=== PATIENT | male | born 1970 | race African-American/Black ===

== ENCOUNTER 2018-03-19 14:30 | Emergency (ER) | payer SELFPAY ==
--- NOTE | 2018-03-19 14:42 | PDOC ---
History of Present Illness - General Chief Complaint: Pain, Acute Stated Complaint: BODY CRAMPS AFTER WORKING OUT Time Seen by Provider: 03/19/18 14:34 - History of Present Illness Initial Comments: 03/19/18 15:17 The patient is a 47 year old male with no significant PMH who presents for evaluation of whole body muscle cramps. The patient reports that after working out today, he has been experiencing whole body muscle cramps prompting his presentation to the ED for further evaluation. He notes that he has had similar symptoms in the past after working out and notes that he had not made a change in his work out routine recently. He otherwise denies fevers, chills, SOB, chest pain, nausea, vomiting, abdominal pain, or changes with urination or bowel movements. Past History - Past Medical History Allergies/Adverse Reactions: Allergies Allergy/AdvReac Type Severity Reaction Status Date / Time No Known Allergies Allergy Unverified 03/19/18 14:32 Home Medications: Ambulatory Orders Albuterol Sulfate [Proair Hfa] 2 inh BID 03/19/18 Montelukast Sodium [Singulair] 10 mg PO DAILY 03/19/18 Review of Systems - Review of Systems Comments:: 03/19/18 15:19 Constitutional: Whole body muscle aches. No fevers, chills, fatigue, HEENT: No Rhinorrhea, nasal congestion, visual changes Cardiovascular: No chest pain, syncope, palpitations, lightheadedness Respiratory: No Cough, SOB, Hemoptysis, Gastrointestinal: No Abdominal pain, Nausea, Vomiting, Constipation, Diarrhea, Melena Genitourinary: No Dysuria, Frequency, Urgency, Hesitancy, Hematuria, Flank pain Musculoskeletal: No Myalgia, arthralgia Skin: No rashes, itching, bruising, pallor Neurologic: No Headache, Dizziness, Numbness, Weakness, or Tingling Psychiatric: No Hallucinations. No SI or HI *Physical Exam - Physical Exam Comments: 03/19/18 15:19 General Appearance: Nourished. No Apparent Distress HEENT: No Pharyngeal Erythema, Tonsillar Exudate, Tonsillar Erythema Neck: No Cervical Lymphadenopathy Respiratory/Chest: Lungs Clear, Normal Breath Sounds. No Crackles, Rales, Rhonchi, Wheezing Cardiovascular: Regular Rhythm, Regular Rate. No Murmur, Gallops, Rubs Gastrointestinal/Abdominal: Normal Bowel Sounds, Soft. No Guarding, Rebound, Tenderness Musculoskeletal: No CVA Tenderness Extremity: Normal Capillary Refill Integumentary: Normal Color, Dry, Warm Neurologic: Fully Oriented, Alert, Normal Mood/Affect, Normal Response, ED Treatment Course - LABORATORY CBC & Chemistry Diagram: 03/19/18 15:06 03/19/18 15:06 Medical Decision Making - Medical Decision Making 03/19/18 15:19 The patient is a 47 year old male with no significant PMH who presents for evaluation of whole body muscle cramps. Differential includes but is not limited to: Muscle cramps, Rhabdo, Infectious, Metabolic Derangement. Given the patient's history and physical exam, we will obtain a cbc, cmp, cpk to evaluate further. We will treat with iv fluids, toradol and continue to monitor and reassess while here in the ED. 03/19/18 15:49 CBC, cmp, cpk are unremarkable. The patient reports improvement in his symptoms. We are comfortable discharging the patient home with primary care provider follow up. We discussed the results, plan, and return precautions with the patient who voiced understanding and is agreeable with the plan. *DC/Admit/Observation/Transfer Diagnosis at time of Disposition: Muscle cramp - Discharge Dispostion Disposition: HOME Condition at time of disposition: Stable - Referrals - Patient Instructions Printed Discharge Instructions: DI for Muscle Strain Additional Instructions: Please return to the ER if you experience concerning or worsening symptoms including worsening difficulty breathing, weakness, or chest pain. Your lab results were normal here in the ER. Please call to schedule a follow up appointment with your primary care provider within 2-3 days to discuss your ER visit and further management of your symptoms. - Post Discharge Activity
[2018-03-19 14:58] VITALS: BP 132/81; PULSE 92; TEMP 97.7; BMI 29.8
[2018-03-19] MEDS ORDERED: SODIUM CHLORIDE 1,000 ML IV STA (14:58)
[2018-03-19] MEDS ORDERED: KETOROLAC TROMETHAMINE 30 MG/1 ML VIAL IVPUSH ONE (14:59)
[2018-03-19] MEDS ORDERED: KETOROLAC TROMETHAMINE 30 MG/1 ML VIAL ONE (15:09)
--- NOTE | 2018-03-19 15:14 | PDOC ---
Attending Attestation - Resident Resident Name: Angel Zurita - ED Attending Attestation I have performed the following: I have examined & evaluated the patient, The case was reviewed & discussed with the resident, I agree w/resident's findings & plan, Exceptions are as noted - HPI HPI: 03/19/18 15:07 47 year old male c/ hx of prior muscle cramping after exercising p/w diffuse muscle cramping. Pt reports that this typically occurs after exercising. Played several hours of basketball and went into sauna. Typically, states has had occurred frequently in the past which resolved with IV fluids. No fevers, chills. no chest pain, SOB. Reports that this feels likely exactly his prior muscle cramping. - Physicial Exam PE: 03/19/18 15:14 GENERAL: Awake, alert, and fully oriented, in no acute distress HEAD: No signs of trauma EYES: EOMI, sclera anicteric, conjunctiva clear ENT: Auricles normal inspection, hearing grossly normal, nares patent, oropharynx clear without exudates. Moist mucosa NECK: Normal ROM, supple, no lymphadenopathy, JVD, or masses LUNGS: Breath sounds equal, clear to auscultation bilaterally. No wheezes, and no crackles HEART: Regular rate and rhythm, normal S1 and S2, no murmurs, rubs or gallops ABDOMEN: Soft, nontender, No guarding, no rebound. No masses EXTREMITIES: Normal range of motion, no edema. No clubbing or cyanosis. No cords, erythema, or tenderness NEUROLOGICAL: Cranial nerves II through XII grossly intact. Normal speech, normal gait SKIN: Warm, Dry, normal turgor, no rashes or lesions noted. - Medical Decision Making 03/19/18 15:14 Vital Signs Temp Pulse Resp BP Pulse Ox 97.7 F 92 H 16 132/81 100 03/19/18 14:31 03/19/18 14:31 03/19/18 14:31 03/19/18 14:31 03/19/18 14:31 47 year old M c/ muscle cramping. Likely 2/2 dehydration. However, will check for electrolyte disorders and CK for rhabdo. Will give IVF and toradol. If workup is unremarkable and pt feels better after treatment, can d/c patient home.
[2018-03-19 15:28] LABS: BASO % 1.5 % (0-2.0); EOS % 2.1 % (0-4.5); HEMOGLOBIN 13.8 GM/dl (11.7-16.9); LYMPH % 22.3 % (8-40); MCH 32.5 pg (25.7-33.7); MCHC 33.7 g/dl (32.0-35.9); MEAN CELL VOLUME 96.6 fl (80-96); MEAN PLT VOLUME 8.3 fl (7.5-11.1); MONO % 7.5 % (3.8-10.2); NEUT % 66.6 % (42.8-82.8); PLATELET COUNT 251 K/MM3 (134-434); RBC 4.25 M/mm3 (4.00-5.60); RDW 11.9 % (11.9-15.9); WHITE BLOOD COUNT 6.4 K/mm3 (4.0-10.8)
[2018-03-19 15:35] LABS: ALBUMIN 4.7 g/dl (3.5-5.0); ALK PHOS 49 U/L (32-92); ANION GAP 7 MMOL/L (8-16); BILIRUBIN,TOTAL 0.8 mg/dl (0.2-1.0); BLOOD UREA NITROGEN 16 mg/dl (7-18); CHLORIDE 102 mmol/L (98-107); CO2 26 mmol/L (22-28); CREATININE 1.2 mg/dl (0.6-1.3); GLUCOSE,RANDOM 85 mg/dl (74-106); MAGNESIUM 1.7 mg/dL (1.8-2.4); POTASSIUM 4.6 mmol/L (3.5-5.1); SGOT/AST 41 U/L (10-42); SGPT/ALT 36 U/L (10-40); SODIUM 135 mmol/L (136-145); TOT PROT 7.9 g/dl (6.4-8.3)
== END 2018-03-19 15:56 | disposition home or self-care (01) ==
LOC: FER 14:30
PROC: 3E0333Z Introduction of Anti-inflammatory into Peripheral Vein, Percutaneous Approach (ICD-10-PCS; principal; 2018-03-19)
PROC: 3E0337Z Introduction of Electrolytic and Water Balance Substance into Peripheral Vein, Percutaneous Approach (ICD-10-PCS; 2018-03-19)
DX: R25.2 Cramp and spasm (principal)
CPT/HCPCS: 36415; 80053; 82550; 82553; 83735; 85025; 99283-25; J7030